=== PATIENT | female | born 1930 | race Caucasian/White ===

== ENCOUNTER → 2018-03-04 | Outpatient (CLI) | payer MEDICARE, OTHER ==
[~2018-03-04] MED LIST: ACET-3160 PO; ACET650T38 PO; ALEN70TA42 PO; AMI10 PO; AMI25 PO; AMIT-106 PO; AMOX500T10 PO; ANU28T RC; ANUHC30T PR; ATOR10TA24 PO; BIMA2.5D5 OP; BIMOD OP; BIMOD OU; CALC-854 PO; CALC600T72 PO; COMODPT OU; CYCL-277 PO; DAR75 PO; DOCU-416 PO; EQUATE ARTHRITIS PO; ERYT1OIN3 OP; HYDR-3078 PO; L GA1CAP PO; LATODPT OD; LIGH1DRO OP; LOR5 PO; MEGARED PO; MOM PO; MV-M1TAB38 PO; OMEP10CA38 PO; PAN40 PO; POLY17PO25 PO; PREG75CA61 PO; PROOMEGA PO; VIT-9 PO; [UNRECOGNIZED DRUG - CODE] PO; reviewed
[2018-03-04 13:11] LABS: PLATELET COUNT, AUTOMATED 210 K/uL (150-450)
== END ==
LOC: LAB 12:43
PROVIDERS: ATTEND Family Medicine
DX: R61 Generalized hyperhidrosis (principal); R63.4 Abnormal weight loss; R53.83 Other fatigue
CPT/HCPCS: 36415; 82040; 82247; 82310; 82374; 82435; 82565; 82947; 84075; 84132; 84155; 84295; 84443; 84450; 84460; 84520; 85025

== ENCOUNTER → 2018-04-16 | Outpatient (CLI) | payer MEDICARE, OTHER ==
--- NOTE | 2018-04-16 13:39 | RADIOLOGY IMAGING REPORT ---
FACILITY: [facility] - [place] PATIENT NAME: Marisol Fleming : 1930 MR: [id number] V: [id number] EXAM DATE: ORDERING PHYSICIAN: HUSEYIN REYEZ TECHNOLOGIST: Location: [facility] - [place] Patient: Marisol Fleming : 1930 Visit/Account:[id number] Date of Sevice: 04/16/2018 Exam type: LUMBAR SPINE 2 OR 3 VIEW History: Sciatica right side Comparison: August 27, 2009. Findings: There are five nonrib-bearing lumbar-type vertebral bodies present. Is a dextroconvex scoliosis of t he lumbar spine. There is severe disc space narrowing seen throughout the entire lumbar spine with m arginal osteophytes. There appears to be mild loss of height of the L2 and L5 vertebral body since t he prior study. IMPRESSION: 1. Extensive multilevel spondylotic changes of the lumbar spine. There appears to be mild loss of height of the L2 and L5 vertebral bodies slightly increased when com pared the prior study Report Dictated By: Nadia Garcia MD at 04/16/2018 1:32 PM Report E-Signed By: Nadia Garcia MD at 04/16/2018 1:35 PM WSN:BASSEM
== END ==
LOC: RAD 11:42
PROVIDERS: ATTEND Family Medicine
DX: M47.896 Other spondylosis, lumbar region (principal)
CPT/HCPCS: 72100